=== PATIENT | male | born 1980 | race Caucasian/White ===

== ENCOUNTER 2021-02-22 15:15 | Emergency (ER) | payer SELFPAY ==
[2021-02-22 15:38] VITALS: BP 132/85; PULSE 91; RESP 16; TEMP 36.8; O2SAT 100; BMI 19.3
[2021-02-22] MEDS: fluorescein 1 mg Strip EYE-LEFT (16:25)
[2021-02-22] MEDS: eye irrigation 30 mL Btl EYE-LEFT (16:26)
[2021-02-22] MEDS: tetracaine 0.5% Op Soln 4 mL Btl 1 DROP EYE-LEFT (16:26)
--- NOTE | 2021-02-22 16:35 | ED_ITS ---
HPI - Eye Problem General: Chief complaint: Eye Problems Stated complaint: L EYE PROBLEM Time Seen by Provider: 02/22/21 16:08 History of Present Illness: HPI Narrative: Patient is a 40-year-old male comes to the ED with left eye complaint. Patient says yesterday he was carrying some movements of the tree and some sawdust fell in patient's left eye. He is now having some eye redness and discomfort. He he tried flushing out his eye with some water after injury. He still having some pain and eye redness today. The pain in his eyes is located in the lateral lower aspect of left knee. Associated symptoms: Denies fever(s), headache(s), nausea, neck pain or vomiting Review of Systems Const: Denies: fever(s), chills or fatigue Eyes: Reports: eye discomfort (left eye) and eye redness (left eye); Denies: change in vision ENMT: Denies: throat pain, odynophagia, nasal discharge or nasal congestion Card: Denies: chest pain, palpitations, edema, swelling of feet/ankles, dyspnea on exertion or orthopnea Resp: Denies: dyspnea, productive cough or non-productive cough GI: Denies: abdominal pain, nausea, vomiting, diarrhea, constipation or hematochezia : Denies: flank pain, difficulty urinating, dysuria or hematuria Musc: Denies: neck pain, back pain or extremity swelling Skin/Breast: Denies: rash or new lesions Neuro: Denies: headache(s), numbness in extremities or weakness in extremities Physical Exam Const: COMMON NORMALS: no acute distress, patient oriented x3 and alert GENERAL APPEARANCE: cooperative and comfortable HENMT: COMMON NORMALS: normocephalic HEAD & SCALP: normocephalic MOUTH: Normal oral and palatal mucosa present THROAT: posterior oropharynx normal and uvula midline Eye: COMMON NORMALS: Equal, round and reactive pupils present and EOMs intact bilaterally EYELID: eyelid abnormality left lower eyelid swelling (localized 2 inflamed areas on lateral aspect) and tenderness CONJUNCTIVA: Yes conjunctival abnormal positive left conjunctival injection localized (lateral side of eye) PUPIL: Yes Equal, round and reactive pupils present SLIT LAMP EXAM: Yes slit lamp exam performed with fluorescein and Yes cornea Cornea details: linear corneal abrasion (Small abrasion noted to the lateral aspect) OTHER: No foreign bodies seen upon exam of left eye. EYE IMAGES: 1. small abrasion noted Neck/C-Spine: COMMON NORMALS: supple GENERAL: Yes normal visual inspection Resp: COMMON NORMALS: normal respiratory effort, No retractions, No use of accessory muscles and clear to auscultation bilaterally AUSCULTATION: clear to auscultation bilaterally Cardio: COMMON NORMALS: regular rate, regular rhythm, S1 normal heart sound present, S2 normal heart sound present, No gallops present (Cardio), No clicks present (Cardio), No murmurs present (Cardio) and Peripheral pulses 2+ throughout RATE: regular rate RHYTHM: regular rhythm HEART SOUNDS: S1 normal heart sound present and S2 normal heart sound present PERIPHERAL PULSES: Peripheral pulses 2+ throughout GI: COMMON NORMALS: Normal to inspection, nondistended, normoactive bowel sounds present, Soft to palpation, non-tender and no masses PALPATION: Yes Soft to palpation : COMMON NORMALS: Yes no CVA tenderness BLADDER/KIDNEY EXAM: Yes no CVA tenderness Back/Pelvis: COMMON NORMALS: no CVA tenderness Extremity: COMMON NORMALS: normal to inspection Neuro: COMMON NORMALS: patient oriented x3 and moves all extremities SENSORIUM/ORIENTATION: Yes alert Skin: GENERAL SKIN EXAM: dry skin Course Vital Signs: Vital signs: Vital Signs Temperature 98.3 F 02/22/21 15:38 Pulse Rate 91 02/22/21 15:38 Respiratory Rate 16 02/22/21 15:38 Blood Pressure 132/85 02/22/21 15:38 Pulse Oximetry 100 02/22/21 15:38 MDM - Eye Problem MDM Narrative: Medical decision making narrative: Patient is a 40-year-old male comes to the ED with left eye complaint. Patient was cutting down some tree limbs and some saw dust got in left eye. Upon exam no foreign bodies were seen in left eye but patient did have conjunctival injection localized to the lateral aspect of left eye. Fluorescein lamp exam was done and small corneal abrasion noted on lateral aspect of left eye. Patient's eye was irrigated with Eye-Stream solution extensively and then tetracaine was used to help numb eye before exam. Patient was diagnosed with corneal abrasion and discharged home w ith a prescription for erythromycin optic ointment and hydrocodone for pain. Patient was given a dose of erythromycin eye ointment was applied while here in the ED. He was given the information for [facility] here in [place] he was told to call them on Wednesday morning for follow-up and reevaluation. He was also given strict return to ED precautions in the next 24 to 48 hours as needed. Patient understood and agreed with plan. Discharge Plan Discharge Patient Disposition: Home Clinical Impression: Corneal abrasion Qualifiers: Encounter type: initial encounter Laterality: left Qualified Code(s): S05.02XA - Injury of conjunctiva and corneal abrasion without foreign body, left eye, initial encounter Condition: Stable Prescriptions: New erythromycin 5 mg/gram (0.5 %) ointment 1 applic ophthalmic (eye) Q6H Qty: 3.5 RF: 0 Discharge Orders: Discharge ED (Routine); Ordered 02/22/21 Ordered By: Yandel Koo Discharge Diet: Regular Discharge Activity: Resume usual activity Patient Instructions: Corneal Abrasion (DC), Opioid Safety Activity Restrictions/Additional Instructions: Follow-up with medical provider as directed. Call [facility] on Wednesday phone number is [phone]. Address is [facility] [address] Dusty Sprague. take medications as prescribed. Return to the ER or your medical provider if condition worsens. Please read and understand discharge instructions. If any questions, please ask. Coding Level of Care Code ED Factory Representative for [facility] Exam Comprehensive
[2021-02-22] MEDS: erythromycin Op Oint 1 gm 1 APPLIC EYE-LEFT (17:03)
== END 2021-02-22 17:11 | disposition home or self-care (01) ==
PROVIDERS: Emergency Provider Physician Assistant
DX: S05.02XA Injury of conjunctiva and corneal abrasion without foreign body, left eye, initial encounter (principal); X58.XXXA Exposure to other specified factors, initial encounter
CPT/HCPCS: 99283